=== PATIENT | male | born 1985 | race Caucasian/White ===

== ENCOUNTER 2024-05-03 13:48 | Emergency (ER) | payer BC ==
[~2024-05-03] VITALS: Ht 195.6 cm; Wt 131.8 kg
[2024-05-03 14:04] VITALS: BP 100/73; PULSE 116; RESP 28; TEMP 98.1; O2SAT 98
[2024-05-03 14:24] LABS: BASOPHILS % (AUTO) 0.6 % (0.0-2.0); EOSINOPHILS % (AUTO) 2.4 % (1.0-6.0); HEMATOCRIT 41.5 % (41-53); HEMOGLOBIN 13.9 g/dL (13.5-17.5); LYMPHOCYTES # (AUTO) 2.3 K/uL (1.0-4.8); MEAN CORPUSCULAR HEMOGLOBIN 28.3 pg (26.0-34.0); MEAN CORPUSCULAR HGB CONC 33.4 G/dL (31.0-37.0); MEAN CORPUSCULAR VOLUME 85 fL (80-100); MONOCYTES # (AUTO) 0.9 K/uL (0.1-1.0); MONOCYTES % (AUTO) 9.7 % (2.0-9.0); NEUTROPHILS # (AUTO) 6.3 K/uL (1.8-7.7); NEUTROPHILS % (AUTO) 64.3 % (40.0-70.0); PLATELET COUNT (AUTO) 351 K/uL (150-450); RED BLOOD CELL COUNT(AUTO) 4.89 MIL/uL (4.50-5.90); RED CELL DISTRIBUTION WIDTH 15.4 % (11.5-14.5); WHITE BLOOD COUNT (AUTO) 9.8 K/uL (4.5-11.0)
[2024-05-03 14:29] LABS: ANION GAP 4 mmol/L (8-16); CALCIUM, TOTAL 9.3 mg/dL (8.8-10.5); CARBON DIOXIDE 30 mmol/L (22-29); CHLORIDE 101 mmol/L (98-107); GLOMERULAR FILTR. RATE CALC > 60 mL/min (>60); GLUCOSE,RANDOM 92 mg/dL (70-110); LIPASE 29 U/L (16-77); POTASSIUM 4.1 mmol/L (3.5-5.1); SODIUM SERUM 135 mmol/L (136-145); UREA NITROGEN, BLOOD 15 mg/dL (7-18)
[2024-05-03 14:38] LABS: LACTIC ACID 0.7 mmol/L (0.4-2.0)
[2024-05-03] MEDS ORDERED: CEPH-558 PO (16:11)
[2024-05-03] MEDS ORDERED: DOXY-354 PO (16:11)
[2024-05-03] MEDS ORDERED: BACI28.410 TP (16:11)
[2024-05-03] MEDS: CefTRIAXone SODIUM 1 GM/VIAL IM ONE (16:28)
[2024-05-03] MEDS: DOXYCYCLINE HYCLATE 100 MG TABLET PO ONE (16:29)
[2024-05-03] MEDS: LIDOCAINE/PF 1% 2 ML VIAL IM ONE (16:29)
[2024-05-03] MEDS ORDERED: IBUP-1554 PO (16:38)
== END 2024-05-03 16:48 | disposition home or self-care (01) ==
LOC: EMS 14:04
DX: L03.115 Cellulitis of right lower limb (principal); I87.2 Venous insufficiency (chronic) (peripheral); Z86.718 Personal history of other venous thrombosis and embolism
CPT/HCPCS: 99285; 93970; 80048; 83605; 83690; 85025; 85379; 36415; 96372; J0696; J3490